=== PATIENT | female | born 1975 | race Caucasian/White ===

== ENCOUNTER 2020-03-12 19:20 | Emergency (ER) | payer MEDICAID ==
[~2020-03-12] VITALS: Ht 162.6 cm; Wt 63.5 kg
[2020-03-12 19:58] VITALS: BP 134/98
--- NOTE | 2020-03-12 20:07 | NUR ---
PT AMBULATED TO LOBBY TO A/W BED PLACEMENT. URINE OBTAINED.
--- NOTE | 2020-03-12 21:20 | NUR ---
PT SEEN AND D/C BY DR REEDER. NO NURSING INTERVENTION PROVIDED.
--- NOTE | 2020-03-12 21:24 | NUR ---
Patient discharged with v/s stable. Written and verbal after care instructions given and explained. Patient alert, oriented and verbalized understanding of instructions. Ambulatory with steady gait. All questions addressed prior to discharge. ID band removed. Patient advised to follow up with PMD. Rx of FLAGYL, MOTRIN given. Patient educated on indication of medication including possible reaction and side effects. Opportunity to ask questions provided and answered.
[2020-03-15 06:07] LABS: CHLAMYDIA TRACHOMATIS AMP DNA Negative (Negative)
== END 2020-03-12 21:24 | disposition home or self-care (01) ==
LOC: MED 19:20
DX: N39.0 Urinary tract infection, site not specified (principal); N73.8 Other specified female pelvic inflammatory diseases; F17.210 Nicotine dependence, cigarettes, uncomplicated
CPT/HCPCS: 36415; 81002; 81025; 87086; 87186; 87491; 99283

== ENCOUNTER 2020-03-25 12:17 | Emergency (ER) | payer MEDICAID ==
--- NOTE | 2020-03-25 12:36 | NUR ---
PATIENT LEFT WITHOUT BEING TRIAGED. NO FURTHER CARE PROVIDED FOR PATIENT.
== END 2020-03-25 12:36 | disposition left against medical advice (07) ==
LOC: MED 12:17
DX: Z53.21 Procedure and treatment not carried out due to patient leaving prior to being seen by health care provider (principal)

== ENCOUNTER 2020-04-17 16:08 | Emergency (ER) | payer MEDICAID ==
[~2020-04-17] VITALS: Ht 162.6 cm; Wt 61.2 kg
[2020-04-17 16:17] VITALS: BP 142/96
--- NOTE | 2020-04-17 16:29 | NUR ---
C/O RECURRING DYSURIA AND WHITE DC WITH PRURITUS >1 WK ADDS CELLULITIS TO LEFT ELBOW AND RIGHT INNER THIGH
--- NOTE | 2020-04-17 16:37 | NUR ---
ZOEY Gilman is evaluating the patient at bedside.
[2020-04-17 17:46] VITALS: BP 136/91
--- NOTE | 2020-04-17 17:47 | NUR ---
Patient discharged with v/s stable. Written and verbal after care instructions given and explained. Patient alert, oriented and verbalized understanding of instructions. Ambulatory with steady gait. All questions addressed prior to discharge. ID band removed. Patient advised to follow up with PMD. Rx of BACTRIM DS given. Patient educated on indication of medication including possible reaction and side effects. Opportunity to ask questions provided and answered.
== END 2020-04-17 17:47 | disposition home or self-care (01) ==
LOC: MED 16:08
DX: N76.0 Acute vaginitis (principal); N76.4 Abscess of vulva
CPT/HCPCS: 81002; 81025; 87070; 87086; 87186; 87205; 87210; 99284

== ENCOUNTER 2020-07-20 01:25 | Emergency (ER) | payer MEDICAID ==
[~2020-07-20] VITALS: Ht 160 cm; Wt 60.8 kg
[2020-07-20 01:36] VITALS: BP 140/88
--- NOTE | 2020-07-20 01:40 | NUR ---
PT AMBUALTED TO RESTROOM TO PROVIDE UA SAMPLE.
--- NOTE | 2020-07-20 01:47 | NUR ---
UA PROVIDED AND LEFT AT BEDSIDE. PT AMBUALTED TO BED 11 WITH STEADY GAIT.
--- NOTE | 2020-07-20 02:00 | NUR ---
Pelvic exam performed by DR REEDER with CHARLES HIGGINS at bedside for entire examination. Patient tolerated procedure WELL. Patient assisted to position of comfort after examination.
[2020-07-20] MEDS ORDERED: AZITHROMYCIN 250 MG TAB PO ONE (02:05)
[2020-07-20] MEDS ORDERED: cefTRIAXone 250 MG in LIDOCAINE MPF 1% 0.9 ML IM ONE (02:05)
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
--- NOTE | 2020-07-20 02:16 | NUR ---
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
[2020-07-20] MEDS ORDERED: cefTRIAXone 250 MG VIAL ONE (02:35)
[2020-07-20] MEDS ORDERED: LIDOCAINE MPF 1% 5 ML ONE (02:35)
--- NOTE | 2020-07-20 03:24 | NUR ---
Patient discharged with v/s stable. Written and verbal after care instructions given and explained. Patient alert, oriented and verbalized understanding of instructions. Ambulatory with steady gait. All questions addressed prior to discharge. ID band removed. Patient advised to follow up with PMD. Rx of flagyl, motrin, promethazine given. Patient educated on indication of medication including possible reaction and side effects. Opportunity to ask questions provided and answered.
== END 2020-07-20 03:24 | disposition home or self-care (01) ==
LOC: MED 01:25
DX: N89.8 Other specified noninflammatory disorders of vagina (principal); J02.9 Acute pharyngitis, unspecified; R03.0 Elevated blood-pressure reading, without diagnosis of hypertension; F17.200 Nicotine dependence, unspecified, uncomplicated; Z88.1 Allergy status to other antibiotic agents
CPT/HCPCS: 36415; 81002; 81025; 87081; 87086; 87491; 96372; 99283; J0696; J2001

== ENCOUNTER 2020-07-28 00:03 | Emergency (ER) | payer MEDICAID ==
[~2020-07-28] VITALS: Ht 162.6 cm; Wt 59.0 kg
[2020-07-28 00:09] VITALS: BP 126/79
--- NOTE | 2020-07-28 00:15 | NUR ---
PT TAKEN TO BED 6 VIA WHEELCHAIR.
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
--- NOTE | 2020-07-28 00:25 | NUR ---
PT AMBULATED TO RESTROOM. STEADY GAIT OBSERVED
[2020-07-28] MEDS ORDERED: LIDOCAINE/EPI 1% 1:100000 20 ML VIAL INJ ONE (00:35)
[2020-07-28] MEDS ORDERED: BACITRACIN OINT 500 UNITS/GM PKT TP ONE (00:35)
[2020-07-28 01:03] VITALS: BP 126/79
--- NOTE | 2020-07-28 01:04 | NUR ---
Patient discharged with v/s stable. Written and verbal after care instructions given and explained. Patient verbalized understanding. Ambulatory with steady gait. All questions addressed prior to discharge. Advised to follow up with PMD.
== END 2020-07-28 01:04 | disposition home or self-care (01) ==
LOC: MED 00:03
DX: S01.112A Laceration without foreign body of left eyelid and periocular area, initial encounter (principal); X58.XXXA Exposure to other specified factors, initial encounter; Y93.89 Activity, other specified; Y92.89 Other specified places as the place of occurrence of the external cause; Y99.8 Other external cause status
CPT/HCPCS: 12001; 73610; 99283; J2001

== ENCOUNTER 2020-08-07 21:24 | Emergency (ER) | payer MEDICAID ==
[~2020-08-07] VITALS: Ht 160 cm; Wt 57.6 kg
[2020-08-07 22:11] VITALS: BP 145/97
--- NOTE | 2020-08-07 22:15 | NUR ---
PT AMBULATED TO RESTROOM TO PROVIDE UA.
--- NOTE | 2020-08-07 22:30 | NUR ---
PT CALLED BACK WITH NO RESPONSE.
--- NOTE | 2020-08-07 22:42 | NUR ---
PT CALLED BACK WITH NO RESPONSE.
--- NOTE | 2020-08-07 22:50 | NUR ---
PT CALLED BACK WITH NO RESPONSE. LWBS.
== END 2020-08-07 22:30 | disposition left against medical advice (07) ==
LOC: MED 21:24
DX: N89.8 Other specified noninflammatory disorders of vagina (principal); Z53.21 Procedure and treatment not carried out due to patient leaving prior to being seen by health care provider

== ENCOUNTER 2020-08-13 22:26 | Emergency (ER) | payer MEDICAID ==
--- NOTE | 2020-08-13 22:30 | NUR ---
PATIENT CALLED TO BE TRIAGE , NO RESPONSE
--- NOTE | 2020-08-13 22:35 | NUR ---
CALLED FOR THE SECOND TIME , NO RESPONSE
--- NOTE | 2020-08-13 22:40 | NUR ---
CALLED FOR THE THIRD TIME PATIENT LEFT WITHOUT BEING SEEN BY DR. PRUETT. NO FURTHER CARE PROVIDED FOR PATIENT.
== END 2020-08-13 22:40 | disposition left against medical advice (07) ==
LOC: MED 22:26
DX: Z53.21 Procedure and treatment not carried out due to patient leaving prior to being seen by health care provider (principal)

== ENCOUNTER 2020-09-24 04:45 | Emergency (ER) | payer MEDICAID ==
[~2020-09-24] VITALS: Ht 162.6 cm; Wt 58.1 kg
[2020-09-24 04:54] VITALS: BP 154/90
--- NOTE | 2020-09-24 05:00 | NUR ---
TO BED # 07 AMBULATORY
--- NOTE | 2020-09-24 05:05 | NUR ---
PROVIDED UA SAMPLE.
--- NOTE | 2020-09-24 05:32 | NUR ---
PT WAS NOT FOUND IN THE ROOM ATTEMPTED TO CALL HER IN THE LOBBY, NO ANSWER AT THIS TIME.
[2020-09-24 05:54] LABS: APPEARANCE,URINE SL CLOUDY (CLEAR); BILIRUBIN,URINE NEGATIVE (NEGATIVE); BLOOD, URINE TRACE-I (NEGATIVE); COLOR,URINE YELLOW (YELLOW); LEUKOCYTE ESTERASE ,URINE NEGATIVE (NEGATIVE); NITRITE, URINE POSITIVE (NEGATIVE); PH,URINE 6.5 (5.0-9.0); UGLUCOSE NEGATIVE (NEGATIVE)
--- NOTE | 2020-09-24 05:57 | NUR ---
Pt ambulated to ER bed 7 w/ steady gait.
--- NOTE | 2020-09-24 06:00 | NUR ---
45 Y/O FEMALE BIB SELF AND SERVICE DOG FOR C/O ABNORMAL VAGINAL DISCHARGE X 5 MONTHS. SHE REPORTS TAKING ANTIBIOTICS WITH INNEFFECTIVE RESULTS, STATES SHES BEEN SUFFERING WITH FOUL ODOR TO AREA. DENIED HAVING ANY PAIN, DISCOMFORT ON URINATION. SHE ALSO FURTHER DENIES HAVING ANY PAIN DURING INTERCOURSE. PMHX: DENIES ALLX: TETRACYCLINE
[2020-09-24 06:10] LABS: RBC,URINE 0-5 /HPF (0-5); WBC,URINE 0-5 /HPF (0-5)
[2020-09-24] MEDS ORDERED: cefTRIAXone 1,000 MG in LIDOCAINE MPF 1% 2.1 ML IM ONE (06:15)
[2020-09-24] MEDS ORDERED: ceFAZolin 1,000 MG VIAL ONE (06:20)
[2020-09-24] MEDS ORDERED: LIDOCAINE MPF 1% 5 ML ONE (06:22)
[2020-09-24] MEDS ORDERED: cefTRIAXone 1,000 MG VIAL ONE (06:22)
--- NOTE | 2020-09-24 06:44 | NUR ---
US AT BEDSIDE
--- NOTE | 2020-09-24 07:18 | NUR ---
REPORT GIVING TO SHABANA HIGGINS FOR CONTINUITY CARE.
--- NOTE | 2020-09-24 07:32 | NUR ---
PT STATES THAT SHE CANNOT STAY ANYMORE AND NEEDS TO GO TO WORK, ERMD MADE AWARE
--- NOTE | 2020-09-24 07:33 | NUR ---
PATIENT ELOPED FROM FACILITY. DISCHARGE INSTRUCTIONS NOT GIVEN TO PATIENT. DR. Leach NOTIFIED.
--- NOTE | 2020-09-24 07:33 | NUR ---
PT LEFT FACILITY AT THIS TIME
[2020-09-24 07:34] VITALS: BP 134/88
== END 2020-09-24 07:33 | disposition home or self-care (01) ==
LOC: MED 04:45
DX: N93.9 Abnormal uterine and vaginal bleeding, unspecified (principal); R30.0 Dysuria; J45.909 Unspecified asthma, uncomplicated; Z88.1 Allergy status to other antibiotic agents
CPT/HCPCS: 36415; 76856; 81001; 81025; 87086; 87491; 93976; 96372; 99284; J0696; J2001; J0690

== ENCOUNTER 2020-11-24 20:09 | Emergency (ER) | payer MEDICAID ==
[~2020-11-24] VITALS: Ht 162.6 cm; Wt 61.2 kg
[2020-11-24 20:22] VITALS: BP 133/91
[2020-11-24 21:18] LABS: APPEARANCE,URINE CLEAR (CLEAR); BILIRUBIN,URINE NEGATIVE (NEGATIVE); BLOOD, URINE NEGATIVE (NEGATIVE); COLOR,URINE YELLOW (YELLOW); LEUKOCYTE ESTERASE ,URINE NEGATIVE (NEGATIVE); NITRITE, URINE NEGATIVE (NEGATIVE); UGLUCOSE NEGATIVE (NEGATIVE)
[2020-11-24] MEDS ORDERED: cefTRIAXone 500 MG in LIDOCAINE MPF 1% 1 ML IM ONE (21:45)
[2020-11-24] MEDS ORDERED: AZITHROMYCIN 250 MG TAB PO ONE (21:45)
[2020-11-24 21:58] LABS: BASOPHILS # (AUTO) 0.1 K/uL (0.00-0.22); BASOPHILS % (AUTO) 0.8 % (0.0-2.0); EOSINOPHILS # (AUTO) 0.1 K/uL (0-0.4); EOSINOPHILS % (AUTO) 1.3 % (0.0-4.0); HEMATOCRIT 34.6 % (36-48); HEMOGLOBIN 11.7 g/dL (12.0-16.0); LYMPHOCYTES # (AUTO) 2.6 K/uL (2.5-16.5); MEAN CORPUSCULAR HEMOGLOBIN 29 pg (27-31); MEAN CORPUSCULAR HGB CONC 34 g/dL (33-37); MEAN CORPUSCULAR VOLUME 87.1 fL (80-94); MONOCYTES # (AUTO) 0.6 K/uL (0.8-1.0); MONOCYTES % (AUTO) 8.7 % (1.7-9.3); NEUTROPHILS # (AUTO) 3.7 K/uL (1.8-7.7); NEUTROPHILS % (AUTO) 52.2 % (42.2-75.2); PLATELET COUNT (AUTO) 268 K/uL (140-450); RED BLOOD CELL COUNT(AUTO) 3.97 MIL/uL (4.20-5.40); WHITE BLOOD COUNT (AUTO) 7.1 K/uL (4.8-10.8)
[2020-11-24] MEDS ORDERED: cefTRIAXone 500 MG VIAL ONE (22:13)
[2020-11-24] MEDS ORDERED: LIDOCAINE MPF 1% 5 ML ONE (22:14)
[2020-11-24 22:18] LABS: ALBUMIN 3.4 g/dL (3.4-5.0); ANION GAP 10.8 (8-16); CREATININE 0.9 mg/dL (0.6-1.3); POTASSIUM 3.8 mmol/L (3.5-5.1); TOTAL BILIRUBIN 0.2 mg/dL (0.0-1.0)
[2020-11-24 23:43] VITALS: BP 133/91
== END 2020-11-24 23:43 | disposition home or self-care (01) ==
LOC: MED 20:09
DX: N76.0 Acute vaginitis (principal); J45.909 Unspecified asthma, uncomplicated; Z88.1 Allergy status to other antibiotic agents
CPT/HCPCS: 36415; 76830; 80053; 81003; 81025; 85025; 87210; 96372; 99284; J0696; J2001

== ENCOUNTER 2021-03-17 00:44 | Emergency (ER) | payer MEDICAID ==
[~2021-03-17] VITALS: Ht 162.6 cm; Wt 66.2 kg
[2021-03-17 00:56] VITALS: BP 142/81
[2021-03-17] MEDS ORDERED: HYDROXYZINE HYDROCHLORIDE 10 MG TAB PO ONE (02:15)
[2021-03-17] MEDS ORDERED: DEXAMETHASONE 10 MG/ML VIAL IM ONE (02:15)
[2021-03-17] MEDS ORDERED: HYDR-635 PO (02:18)
[2021-03-17 02:30] VITALS: BP 142/81
== END 2021-03-17 02:30 | disposition home or self-care (01) ==
LOC: MED 00:44
DX: L29.9 Pruritus, unspecified (principal); J45.909 Unspecified asthma, uncomplicated; F17.210 Nicotine dependence, cigarettes, uncomplicated; Z88.0 Allergy status to penicillin
CPT/HCPCS: 96372; 99283; J1100

== ENCOUNTER 2022-12-09 17:14 | Emergency (ER) | payer MEDICAID ==
[~2022-12-09] VITALS: Ht 162.6 cm; Wt 76.8 kg
[~2022-12-09 17:14] MED LIST: HYDR-635 PO
[2022-12-09 17:32] VITALS: BP 160/76
--- NOTE | 2022-12-09 17:44 | NUR ---
ASSUMED PATIENT CARE, NURSING ASSESSMENT COMPLETED.
[2022-12-09] MEDS ORDERED: KETOROLAC 30 MG/ML VIAL IM ONE (17:55)
--- NOTE | 2022-12-09 17:59 | NUR ---
SEEN AND EVALUATED BY , MSE COMPLETED.
--- NOTE | 2022-12-09 19:00 | NUR ---
47 Y/O FEMALE C/O L HIP PAIN RADIATING UP BACK X1 MONTH. PT REPORTS SHE WOKE UP X1 MONTH AGO WITH A LIMP. PT REPORTS THIS HAS BEEN ONGOING XYEARS BUT COMES AND GOES. DENIES INJURY/FALLS. MOTRIN WITHOUT RELIEF. PMH:DENIES
[2022-12-09] MEDS ORDERED: CAPS1ADH5 TP (19:45)
[2022-12-09] MEDS ORDERED: ACET-8905 PO (19:45)
[2022-12-09 19:50] VITALS: BP 123/79
--- NOTE | 2022-12-09 19:50 | NUR ---
Patient discharged with v/s stable. Written and verbal after care instructions given and explained. Patient alert, oriented and verbalized understanding of instructions. Ambulatory with steady gait. All questions addressed prior to discharge. ID band removed. Patient advised to follow up with PMD. Rx of hydrocodone and capsaicin given. Patient educated on indication of medication including possible reaction and side effects. Opportunity to ask questions provided and answered.
== END 2022-12-09 19:50 | disposition home or self-care (01) ==
LOC: MED 17:14
DX: M16.12 Unilateral primary osteoarthritis, left hip (principal); J45.909 Unspecified asthma, uncomplicated; Z88.8 Allergy status to other drugs, medicaments and biological substances; Z79.899 Other long term (current) drug therapy
CPT/HCPCS: 73502; 96372; 99283; J1885

== ENCOUNTER 2022-12-10 16:41 | Emergency (ER) | payer MEDICAID ==
[~2022-12-10] VITALS: Ht 162.6 cm; Wt 76.2 kg
[~2022-12-10 16:41] MED LIST changes: +ACET-8905 PO; +CAPS1ADH5 TP
[2022-12-10 16:46] VITALS: BP 127/84
--- NOTE | 2022-12-10 17:00 | NUR ---
47/F WALKED IN REQUESTING MED CLEARANCE FOR REHAB. PT TOOK 2 TABS OF NORCO AND WAS TOLD BY REH[facility] TO VISIT ED FOR EVALUATION PRIOR TO COMING BACK. DENIES ANY COMPLAINTS AT THIS TIME. PT WAS SEEN YESTERDAY FOR ARTHRITIS. PMH: DENIES
== END 2022-12-10 17:20 | disposition home or self-care (01) ==
LOC: MED 16:41
DX: R03.0 Elevated blood-pressure reading, without diagnosis of hypertension (principal); J45.909 Unspecified asthma, uncomplicated; F17.210 Nicotine dependence, cigarettes, uncomplicated; F15.90 Other stimulant use, unspecified, uncomplicated; Z71.6 Tobacco abuse counseling; Z72.89 Other problems related to lifestyle; Z79.899 Other long term (current) drug therapy
CPT/HCPCS: 99281

== ENCOUNTER 2023-03-08 08:51 | Emergency (ER) | payer MEDICAID ==
[~2023-03-08] VITALS: Ht 162.6 cm; Wt 72.6 kg
[2023-03-08 09:03] VITALS: BP 130/79; PULSE 75; RESP 18; TEMP 98.7; O2SAT 97
[2023-03-08 10:06] VITALS: BP 122/79; PULSE 74; RESP 17; O2SAT 98
== END 2023-03-08 10:05 | disposition home or self-care (01) ==
LOC: MED 08:51
DX: M16.12 Unilateral primary osteoarthritis, left hip (principal); J45.909 Unspecified asthma, uncomplicated; Z79.899 Other long term (current) drug therapy; Z88.1 Allergy status to other antibiotic agents
CPT/HCPCS: 99281

== ENCOUNTER 2023-05-29 12:37 | Emergency (ER) | payer MEDICAID ==
[~2023-05-29] VITALS: Ht 157.5 cm; Wt 63.5 kg
[2023-05-29 12:42] VITALS: BP 119/60; PULSE 89; RESP 18; TEMP 97.4; O2SAT 98
== END 2023-05-29 13:17 | disposition home or self-care (01) ==
LOC: MED 12:37
DX: S61.211A Laceration without foreign body of left index finger without damage to nail, initial encounter (principal); J45.909 Unspecified asthma, uncomplicated; Z79.899 Other long term (current) drug therapy; Z88.1 Allergy status to other antibiotic agents; W45.8XXA Other foreign body or object entering through skin, initial encounter; Y93.G3 Activity, cooking and baking; Y92.89 Other specified places as the place of occurrence of the external cause; Y99.8 Other external cause status
CPT/HCPCS: 12001; 99283

== ENCOUNTER 2024-03-11 19:39 | Emergency (ER) | payer MEDICAID ==
[~2024-03-11] VITALS: Ht 162.6 cm; Wt 72.1 kg
[2024-03-11 20:09] VITALS: BP 115/83; PULSE 76; RESP 14; TEMP 97.1; O2SAT 99
[2024-03-11 20:32] LABS: BASOPHILS # (AUTO) 0.1 K/uL (0.00-0.22); BASOPHILS % (AUTO) 0.7 % (0.0-2.0); EOSINOPHILS # (AUTO) 0.2 K/uL (0-0.4); EOSINOPHILS % (AUTO) 1.6 % (0.0-4.0); HEMATOCRIT 39.9 % (36-48); HEMOGLOBIN 13.3 g/dL (12.0-16.0); LYMPHOCYTES % (AUTO) 37.1 % (20.5-51.1); MEAN CORPUSCULAR HEMOGLOBIN 29 pg (27-31); MEAN CORPUSCULAR HGB CONC 33 g/dL (33-37); MONOCYTES # (AUTO) 0.9 K/uL (0.8-1.0); MONOCYTES % (AUTO) 8.1 % (1.7-9.3); NEUTROPHILS # (AUTO) 5.7 K/uL (1.8-7.7); NEUTROPHILS % (AUTO) 52.5 % (42.2-75.2); PLATELET COUNT (AUTO) 328 K/uL (140-450); RED BLOOD CELL COUNT(AUTO) 4.54 MIL/uL (4.20-5.40); RED CELL DISTRIBUTION WIDTH 14.1 % (11.6-13.7); WHITE BLOOD COUNT (AUTO) 10.9 K/uL (4.8-10.8)
[2024-03-11] MEDS: ACETAMINOPHEN EXTRA STRENGTH 500 MG TAB PO ONE (20:35)
[2024-03-11 20:56] LABS: ANION GAP 14.4 (8-16); CALCIUM 9.4 mg/dL (8.5-10.1); CARBON DIOXIDE 22.8 mmol/L (21-32); CREATININE 0.8 mg/dL (0.6-1.3); POTASSIUM 4.2 mmol/L (3.5-5.1)
[2024-03-11 21:26] LABS: AMPHETAMINE, URINE NEGATIVE ng/ml (NEG <=1000); BARBITURATE, URINE NEGATIVE ng/ml (NEG <=200); BENZODIAZEPINE, URINE NEGATIVE ng/mL (NEG <=200); CANNABINOID, URINE NEGATIVE ng/mL (NEG <=50); COCAINE, URINE NEGATIVE ng/mL (NEG <=300); OPIATE, URINE NEGATIVE ng/mL (NEG <=2000); PHENCYCLIDINE SCREEN,URINE NEGATIVE ng/mL (NEG <=25)
== END 2024-03-11 22:55 | disposition left against medical advice (07) ==
LOC: MED 19:39
DX: R51.9 Headache, unspecified (principal); H53.8 Other visual disturbances; H57.13 Ocular pain, bilateral; M19.90 Unspecified osteoarthritis, unspecified site; Z79.1 Long term (current) use of non-steroidal anti-inflammatories (NSAID); Z79.899 Other long term (current) drug therapy; Z88.1 Allergy status to other antibiotic agents
CPT/HCPCS: 36415; 70450; 80048; 80305; 81025; 85025; 93005; 99284

== ENCOUNTER 2024-04-20 17:52 | Emergency (ER) | payer MEDICAID ==
[~2024-04-20] VITALS: Ht 165.1 cm; Wt 68.0 kg
[2024-04-20 18:07] VITALS: BP 123/64; PULSE 85; RESP 16; TEMP 97.7; O2SAT 97
[2024-04-20 20:43] LABS: BASOPHILS % (AUTO) 0.3 % (0.0-2.0); EOSINOPHILS # (AUTO) 0.1 K/uL (0-0.4); EOSINOPHILS % (AUTO) 1.3 % (0.0-4.0); HEMATOCRIT 40.6 % (36-48); HEMOGLOBIN 13.4 g/dL (12.0-16.0); LYMPHOCYTES # (AUTO) 4.3 K/uL (2.5-16.5); LYMPHOCYTES % (AUTO) 38.8 % (20.5-51.1); MEAN CORPUSCULAR HEMOGLOBIN 29 pg (27-31); MEAN CORPUSCULAR HGB CONC 33 g/dL (33-37); MEAN CORPUSCULAR VOLUME 88.2 fL (80-94); MONOCYTES # (AUTO) 0.8 K/uL (0.8-1.0); NEUTROPHILS # (AUTO) 5.8 K/uL (1.8-7.7); NEUTROPHILS % (AUTO) 52.6 % (42.2-75.2); PLATELET COUNT (AUTO) 305 K/uL (140-450); RED BLOOD CELL COUNT(AUTO) 4.61 MIL/uL (4.20-5.40); RED CELL DISTRIBUTION WIDTH 13.5 % (11.6-13.7)
[2024-04-20 20:55] LABS: ANION GAP 12.6 (8-16); CARBON DIOXIDE 26.3 mmol/L (21-32); CREATININE 0.8 mg/dL (0.6-1.3); POTASSIUM 3.9 mmol/L (3.5-5.1)
[2024-04-20 21:09] LABS: APPEARANCE,URINE CLEAR (CLEAR); BILIRUBIN,URINE NEGATIVE (NEGATIVE); BLOOD, URINE NEGATIVE (NEGATIVE); COLOR,URINE YELLOW (YELLOW); LEUKOCYTE ESTERASE ,URINE 1+ (NEGATIVE); NITRITE, URINE NEGATIVE (NEGATIVE); PROTEIN,URINE NEGATIVE (NEGATIVE); UGLUCOSE NEGATIVE (NEGATIVE); UROBILINOGEN,URINE 0.2 EU/dL (0.2 - 1)
[2024-04-20 21:33] LABS: ALBUMIN 3.8 g/dL (3.4-5.0); BILIRUBIN,DIRECT 0.1 mg/dL (0.0-0.3); TOTAL BILIRUBIN 0.3 mg/dL (0.0-1.0); TOTAL PROTEIN, SERUM 7.2 g/dL (6.4-8.2)
[2024-04-20 21:45] LABS: BACTERIA,URINE FEW /HPF (None Seen); MUCUS,URINE None Seen /LPF (None Seen); RBC,URINE 0-5 /HPF (0-5); SQUAMOUS EPITHELIAL CELL,UR 4-10 (MOD) /LPF (0-3 (FEW)); TRICHOMONAS,URINE None Seen /HPF (None Seen); WHITE BLOOD CELL CASTS,URINE None Seen /LPF (None Seen); YEAST,URINE None Seen /HPF (None Seen)
[2024-04-23] MEDS ORDERED: CIPR500T4 PO (16:17)
== END 2024-04-21 00:10 | disposition left against medical advice (07) ==
LOC: MED 17:52
DX: R10.9 Unspecified abdominal pain (principal); F41.9 Anxiety disorder, unspecified; Z53.21 Procedure and treatment not carried out due to patient leaving prior to being seen by health care provider
CPT/HCPCS: 36415; 80048; 80076; 81001; 81025; 83690; 85025; 87086; 87186